=== PATIENT | female | born 1950 | race Hispanic/Latino ===

== ENCOUNTER 2021-07-05 10:25 | Outpatient (CLI) | payer MEDICARE | END 2021-07-05 10:26 | disposition home or self-care (01) | LOC: CSHMAMMO 10:25 | PROVIDERS: ATTEND Family Medicine | DX: Z12.31 Encounter for screening mammogram for malignant neoplasm of breast (principal); Z80.3 Family history of malignant neoplasm of breast | CPT/HCPCS: 77063; 77067 ==